=== PATIENT | male | born 1960 | race Caucasian/White ===

== ENCOUNTER 2017-06-09 08:30 | Outpatient (RCR) | payer MEDICAID, SELFPAY | END 2017-06-09 08:31 | disposition home or self-care (01) | LOC: PT 08:30 | PROVIDERS: Visit Provider Physician Assistant Medical | DX: M48.062 Spinal stenosis, lumbar region with neurogenic claudication (principal) | CPT/HCPCS: 97010; 97012; 97014; 97110; 97164; G0283 ==

== ENCOUNTER → 2017-07-08 10:13 | Outpatient (CLI) | payer MEDICAID, SELFPAY ==
--- NOTE | 2017-07-08 10:16 | US_ITS ---
US abdomen limited COMPARISON: None HISTORY: Right upper quadrant pain TECHNIQUE: Ultrasound abdomen limited FINDINGS: The pancreas is normal. The liver is normal in size and shows normal parenchymal echogenicity. The gallbladder is normal in size and there is a small amount of biliary sludge near the neck and in addition there is a nonshadowing echo attached to the gallbladder wall near the neck likely a small cholesterol polyp measuring approximately 0.5 x 0.2 cm in diameter. The common bile duct is normal caliber. Right kidney measures 11.6 x 4.7 x 7.0 cm. There are no definite cortical cysts identified. IMPRESSION: Small amount biliary sludge along with probable cholesterol polyp, no other significant abnormality noted
== END ==
PROVIDERS: PCP Nurse Practitioner Family; Visit Provider Nurse Practitioner Family
DX: R10.11 Right upper quadrant pain (principal)
CPT/HCPCS: 76705

== ENCOUNTER → 2017-07-14 11:37 | Outpatient (CLI) | payer MEDICAID, SELFPAY ==
--- NOTE | 2017-07-14 11:46 | XR_ITS ---
XR knee LT 3V HISTORY: ITS.REASON: LEFT KNEE PAIN, ORDERING PHYSICIAN: Darlyn Lowe PATIENT AGE: 57 years COMPARISON: FINDINGS: No fracture or dislocation. No lytic or blastic change. Normal mineralization. There are moderate osteoarthritic changes of the medial compartment and patellofemoral joint. Osteophytes are present involving all 3 compartments greater at the medial compartment and patellofemoral joint. IMPRESSION: Moderate osteoarthritis of the left knee
== END ==
PROVIDERS: PCP Nurse Practitioner Family; Visit Provider Nurse Practitioner Family
DX: M25.562 Pain in left knee (principal); I49.9 Cardiac arrhythmia, unspecified
CPT/HCPCS: 73562; 93225; 93226

== ENCOUNTER → 2017-08-11 09:44 | Outpatient (CLI) | payer MEDICAID, SELFPAY ==
--- NOTE | 2017-08-11 09:49 | NM_ITS ---
NM hepatobiliary w pharm HISTORY: Right upper quadrant pain with nausea, abnormal gallbladder ultrasound ITS.REASON: RUQ PAIN ORDERING PHYSICIAN: Darlyn Lowe PATIENT AGE: 57 years DOSE: 8.00 mCi technetium Choletec. Fatty meal/ensure given by mouth. No pain reported with fatty meal. COMPARISON: 07/08/2017 DOSE: 8 mCi technetium Choletec IV FINDINGS: Homogeneous activity is present within the hepatic parenchyma. Activity is present in the gallbladder by 15 minutes. Activity is present in the small bowel by 30 minutes. The gallbladder ejection fraction is calculated to be 37% which is at lower limits of normal The patient did not report pain or other symptoms during the fatty meal ingestion. IMPRESSION: Unremarkable hepatobiliary scan and gallbladder ejection fraction. No evidence of common or cystic duct obstruction with normal gallbladder ejection fraction
== END ==
PROVIDERS: PCP Nurse Practitioner Family; Visit Provider Nurse Practitioner Family
DX: R10.11 Right upper quadrant pain (principal)
CPT/HCPCS: 78227; A9537

== ENCOUNTER → 2017-08-19 11:25 | Outpatient (CLI) | payer MEDICAID, SELFPAY ==
--- NOTE | 2017-08-19 11:40 | XR_ITS ---
XR chest 2V HISTORY: ITS.REASON: CHEST PAIN ORDERING PHYSICIAN: Darlyn Lowe PATIENT AGE: 57 years COMPARISON: None FINDINGS: The cardiomediastinal silhouette and pulmonary vascularity are within normal limits. The lungs are clear without infiltrates, suspicious nodules, or pleural effusions. There are degenerative changes in the thoracic spine No acute bony abnormalities. IMPRESSION: No acute finding
== END ==
PROVIDERS: PCP Nurse Practitioner Family; Visit Provider Nurse Practitioner Family
DX: R07.9 Chest pain, unspecified (principal)
CPT/HCPCS: 71046

== ENCOUNTER → 2017-09-16 13:38 | Outpatient (CLI) | payer MEDICAID, SELFPAY | PROVIDERS: PCP Nurse Practitioner Family; Visit Provider Internal Medicine Cardiovascular Disease | DX: G47.33 Obstructive sleep apnea (adult) (pediatric) (principal); R06.83 Snoring; R40.0 Somnolence; R07.9 Chest pain, unspecified; I10 Essential (primary) hypertension | CPT/HCPCS: 95806 ==

== ENCOUNTER → 2017-09-19 06:18 | Outpatient (CLI) | payer MEDICAID, SELFPAY ==
--- NOTE | 2017-09-19 06:19 | NM_ITS ---
SPECT MYOCARDIAL PERFUSION SCAN, REST AND STRESS: EXERCISE STRESS: [facility] REVIEW QGS EF AND WALL MOTION EVALUATION: QPS - PERFUSION EVALUATION: HISTORY: SOB, Palpitations, HTN PROCEDURE: Rest imaging performed after administration of10.07 millicuries Tc MIBI. Dose administered at6:30 a.m., with imaging thereafter. Stress imaging was then performed following5 minutes 50 seconds of exercise stress. The patient achieved a heart [id number] with projected heart rate of137 . Resting BP170/103 with stress 176/90. At maximum exercise stress,30.0 millicuries Tc MIBI administered at8:20 a.m. with [id number] minutes thereafter. FINDINGS: Perfusion Evaluation: The single slice spect images as well as the [facility] bull's-eye data summary were reviewed. Wall Motion and Ejection Fraction Evaluation: Gated SPECT review and analysis used to evaluate these features. There is a 56 % left ventricular ejection fraction. There seems to be good wall motion SPECT images reveal small decreased activity in a portion the anterior and septal wall which does not change much with rest images. Gated images calculated ejection fraction of 56% with normal wall motion IMPRESSION: Small defect in the anterior wall and portion of the septal wall which does not have reversible ischemia. Normal ejection fraction wall motion. Clinical correlation is advised
--- NOTE | 2017-09-19 07:07 | HMH.ITSHM ---
BISOPROLOL LOSARTAN MELOXICAM TAMSULOSIN FANOTIDINE
== END ==
PROVIDERS: PCP Nurse Practitioner Family; Visit Provider Internal Medicine
DX: R07.89 Other chest pain (principal); R00.2 Palpitations; R06.09 Other forms of dyspnea; K21.9 Gastro-esophageal reflux disease without esophagitis; Z82.49 Family history of ischemic heart disease and other diseases of the circulatory system
CPT/HCPCS: 78452; 93017; 93306; A9502

== ENCOUNTER → 2017-09-20 10:59 | Outpatient (CLI) | payer MEDICAID, SELFPAY ==
--- NOTE | 2017-09-20 11:01 | CA_ITS ---
PROCEDURE: 2-D M-mode and color Doppler study INDICATIONS FOR THE TEST: Chest pain+ COPD Heart Murmur Tobacco Smoking Palpitations Fatigue Syncope Edema Hypertension+Diabetes Mellitus Rheumatic Fever SOB+[place] Obesity Hyperlipidemia Family History HD Additional History TACHYCARDIA PATIENT INFORMATION HEIGHT:72 WEIGHT:217 GENDER: Male B/P:169/98 2-D/M-MODE INTERPRETATION: 2-D MEASUREMENTS OBSERVED VALUES IN CMS Right Ventricular Dimension (RVDd) 2.5 Interventricular Septum (Thickness)(IVsd) 1.6 Left Ventricular Internal Dimensions(LVIDd) 5.7 Left Ventricular Posterior Wall (Thickness)(LVPWd) 0.9 Aortic Root 3.7 Aortic Cusp Separation 2.2 Left Atrial Dimensions (LAD) 4.7 2D 1. Left atrium is mildly enlarged, left ventricle is normal size, mild concentric left ventricular hypertrophy, visually estimated ejection fraction 55% with no obvious regional wall motion abnormality. 2. The right atrium and right ventricle are normal size and contractility. 3. The aortic valve is minimally thickened and fibrosed. 4. The mitral and tricuspid valvular grossly normal. 5. The pulmonic valve is poorly visualized. 6. No significant pericardial effusion noted. DOPPLER INTERROGATION: Doppler interrogation of the aortic, mitral and tricuspid valvular presence of mild mitral and tricuspid regurgitation, tricuspid and jet velocity is insufficient for calculation of the right ventricular systolic pressure, grade 1 diastolic dysfunction seen without tissue Doppler evidence of raised left atrial pressure. CONCLUSION: 1. Mildly enlarged left atrium, normal left ventricular size, mild concentric left ventricular hypertrophy, visually estimated ejection fraction 55% with no obvious regional wall motion abnormality, grade 1 diastolic dysfunction seen without tissue Doppler evidence of raised left atrial pressure. 2. Mild mitral and tricuspid addition 3. No significant pericardial effusion noted.
== END ==
PROVIDERS: PCP Nurse Practitioner Family; Visit Provider Internal Medicine
DX: R07.9 Chest pain, unspecified (principal); R06.00 Dyspnea, unspecified; R00.2 Palpitations; Z82.49 Family history of ischemic heart disease and other diseases of the circulatory system
CPT/HCPCS: 93306

== ENCOUNTER → 2017-09-22 11:29 | Outpatient (CLI) | payer MEDICAID, SELFPAY ==
[2017-09-22 13:10] LABS: Anion Gap 10.8 mEq/L (5-15); Blood Urea Nitrogen 10 mg/dL (7-18); Carbon Dioxide 31 mmol/L (21.0-32.0); Chloride 100 mmol/L (98-107); Creatinine,Serum 0.73 mg/dL (0.70-1.30); Estimated Glomerular Filt Rate 110 ml/min (>60); GFR (African American) 133 ML/MIN (>60); Glucose 93 mg/dL (74-106); Potassium 3.8 mmoL/L (3.5-5.1); Sodium 138 mmol/L (136-145)
== END ==
PROVIDERS: Visit Provider Internal Medicine Cardiovascular Disease
DX: I25.10 Atherosclerotic heart disease of native coronary artery without angina pectoris (principal); I10 Essential (primary) hypertension
CPT/HCPCS: 36415; 80048

== ENCOUNTER → 2017-11-09 09:52 | Outpatient (CLI) | payer MEDICAID, SELFPAY ==
--- NOTE | 2017-11-09 09:59 | XR_ITS ---
EXAM: XR cervical spine 5V HISTORY: Neck pain ITS.REASON: CERVICALGIA ORDERING PHYSICIAN: Darlyn Lowe PATIENT AGE: 57 years COMPARISON: None FINDINGS: Degenerative disc disease is present at C5-C6, C6-C7, and C7-T1. There is 3 mm anterolisthesis of C4 on C5. There are small anterior osteophytes. Mild foraminal narrowing is noted on the left at C3-C4 and C4-C5. No fracture or dislocation. Facet arthritic changes are present from C46. IMPRESSION: Cervical spondylosis as described above with degenerative disc disease and facet arthritic change.
== END ==
PROVIDERS: PCP Family Medicine; Visit Provider Nurse Practitioner Family
DX: M54.2 Cervicalgia (principal)
CPT/HCPCS: 72050

== ENCOUNTER → 2017-12-16 07:37 | Outpatient (CLI) | payer MEDICAID, SELFPAY ==
--- NOTE | 2017-12-16 07:40 | CT_ITS ---
CT CERVICAL SPINE WITHOUT CONTRAST CT RECONSTRUCTIONS HISTORY:Neck pain, osteoarthritis with myelopathy, cervicalgia ORDERING PHYSICIAN: Darlyn Lowe PATIENT AGE: 57 years COMPARISON: None Technique: All CT scans at the facility use one or more dose reduction, viz: automated exposure control, ma/kV adjustment per patient size (including targeted exams where dose is matched to indication, i.e. head), or iterative reconstruction technique PROCEDURE: Axial spiral CT scanning performed of the cervical spine beginning at the base of the skull and continuing to the upper T-spine. 3-D multiplanar reconstruction with 3-D manipulation of volumetric data set in image rendering was completed by the radiologist and/or technologist with the supervision of the radiologist on independent workstation. FINDINGS: No acute fracture or dislocation. No bony destructive process evident. There is multilevel cervical spondylosis with degenerative disc disease and facet and uncovertebral arthropathy as described below. C2-C3: Mild right lateral recess narrowing from uncovertebral hypertrophy. C3-C4: Degenerative disc disease with mild left-sided foraminal narrowing. C4-C5: Degenerative disc disease. 3 mm anterolisthesis of C4. Severe left-sided facet hypertrophic change with uncovertebral hypertrophy and moderate to severe left-sided foraminal narrowing C5-C6: Degenerative disc disease with minimal bulging disc. C6-C7: Degenerative disc disease with small left paracentral disc osteophyte complex and left lateral recess and foraminal narrowing. C7-T1: Unremarkable. There is a small sclerotic focus involving the right T2 vertebral body inferiorly and may be due to a bone island. IMPRESSION: Multilevel cervical spondylosis as detailed above with lateral recess and foraminal narrowing. Please see above for detailed description at each level
== END ==
PROVIDERS: PCP Family Medicine; Visit Provider Nurse Practitioner Family
DX: M54.2 Cervicalgia (principal); M47.12 Other spondylosis with myelopathy, cervical region
CPT/HCPCS: 72125

== ENCOUNTER → 2018-03-01 13:55 | Outpatient (CLI) | payer MEDICAID, SELFPAY ==
--- NOTE | 2018-03-01 14:03 | CT_ITS ---
CT abdomen pelvis w con CLINICAL INDICATION: ITS.REASON: VOMITING,RLQ PAIN,LEUKOCYTOSIS ORDERING PHYSICIAN: Darlyn Lowe PATIENT AGE: 58 years COMPARISON: None TECHNIQUE: Axial images obtained with sagittal and coronal reformats. All CT scans at the facility use one or more dose reduction, viz: automated exposure control, ma/kV adjustment per patient size (including targeted exams where dose is matched to indication, i.e. head), or iterative reconstruction technique. PROCEDURE: Oral Contrast: None IV Contrast: 75 mL's of Isovue 370. FINDINGS: Atelectatic changes are present in the right lower lobe posteriorly 1 similar isodense involving the central aspect of the liver may be due to a cyst. Spleen, gallbladder, adrenal glands, and pancreas have an unremarkable appearance. There is mild stranding in the perinephric fat on both sides. There are left renal cyst measuring up to 2.9 cm and small right renal cyst. No hydronephrosis evident. There is a minimal amount of fluid in the perinephric region on both sides. There is extensive irregular thickening of the appendix with several appendicoliths at the base of the appendix. There is appears to be a small amount of extra appendiceal gas. Extensive stranding of the periappendiceal fat is noted. There is also thickening of the small bowel in the right lower quadrant and thickening of the cecum adjacent to the severe appendicitis. No obvious abscess. Fluid-filled small bowel loops are present proximal to the area of inflammation. There is a small focal hernia containing gas. Small amount fluid is present in the pelvis. There has been a prior laminectomy at L4 and L5 with postsurgical changes in the lumbar spine.. There is a fracture of the spinous process of L3 which is nondisplaced. IMPRESSION: The findings are consistent with severe appendicitis with appendicoliths. The appendix has an irregular appearance with thickened wall with moderate to severe stranding of the para appendiceal fat and there is a small amount of extra appendiceal gas consistent with either ruptured or gangrenous appendicitis. No obvious abscess. There is a local ileus. Critical result called to Anne on 03/01/2018 3:50 PM.
[2018-03-01 14:57] LABS: Blood Urea Nitrogen 8 mg/dL (7-18); Creatinine,Serum 0.95 mg/dL (0.70-1.30); Estimated Glomerular Filt Rate 81 ml/min (>60); GFR (African American) 98 ML/MIN (>60)
== END ==
PROVIDERS: PCP Nurse Practitioner Family; Visit Provider Nurse Practitioner Family
DX: K35.80 Unspecified acute appendicitis (principal)
CPT/HCPCS: 36415; 74177; 82565; 84520; 88304; Q9967

== ENCOUNTER 2018-03-01 16:12 | Inpatient (IN) ==
[2018-03-01 16:30] LABS: Basophils % 0.2 % (0.1-2.0); Eosinophils % 0.1 % (0.1-12.0); Hematocrit 41.9 % (42.0-52.0); Hemoglobin 13.9 g/dL (14.1-18.0); Lymphocytes # 1.1 K/mm3 (0.7-4.5); Lymphocytes % 7.6 % (10-50); Mean Corpuscular HGB Conc 33.2 g/dL (31.8-35.4); Mean Corpuscular Hemoglobin 28.4 pg (27.0-31.2); Mean Corpuscular Volume 85.5 fl (80-94); Mean Platelet Volume 6.7 fl (7.4-10.4); Monocytes # 0.8 K/mm3 (0.1-1.0); Monocytes % 5.6 % (1.7-9.3); Neutrophils # 12.4 K/mm3 (1.8-7.8); Neutrophils % 86.5 % (37.0-80.0); Platelet Count 251 K/mm3 (142-424); Red Cell Distribution Width 13.2 % (11.5-17.5); White Blood Count 14.3 K/mm3 (4.8-10.8)
[2018-03-01 16:38] LABS: Albumin Level 3.3 gm/dL (3.4-5.0); Albumin/Globulin Ratio 0.9 (1.1-1.8); Anion Gap 12.2 mEq/L (5-15); Bilirubin,Total 1.5 mg/dL (0.2-1.0); Calcium 9.2 mg/dL (8.5-10.1); Globulin 3.6 gm/dl (1.3-3.2); Potassium 3.2 mmoL/L (3.5-5.1); Total Protein,Serum 6.9 gm/dL (6.4-8.2)
--- NOTE | 2018-03-01 17:03 | Emergency Department Note ---
ED Disposition Clinical Impression: Acute appendicitis Disposition: Admitted As Inpatient Condition on Discharge: Serious Instructions: DI for Acute Abdomen Referrals: Darlyn Lowe APRN [Primary Care Provider] - - Critical Care Critical Care Time: Yes Attestation: On 03/01/18, the high probability of a clinically significant, sudden or life threatening deterioration of the following system(s) required my full and direct attention, intervention and personal management. The time I documented below is in addition to time spent performing reported procedures but includes the following listed in this critical care notation. Vital system(s) involved:: Circulatory Failure, Metabolic Failure, Shock (Hemorrhage) My critical care processes included: Assessment & monitoring of V/S, Initial and Re-exams, Data Review/Interpretation, Coordinating Care, Medication Orders and management Medical Decision Making - Medical Records Medical records reviewed: Yes: I reviewed the patient's medical records. MR Comment: Discussed case with Dr. Benson. Patient taken to OR form ED. Patient remained stable during his ED care. - Ant Inquiry Pt receiving controlled substance: Yes Ant was queried for this patient: No Reason not queried -: Emergent pt cond-no time Risks and benefits of using a controlled substance: were discussed with pt by me Vital Signs: 03/01/18 16:26 Temperature 98.7 F Temperature Source Oral Pulse Rate [Left Radial] 97 H Respiratory Rate 18 Blood Pressure [Right Arm] 139/82 Blood Pressure Mean [Right Arm] 101 Blood Pressure Source [Right Arm] Automatic Cuff 02 Sat by Pulse Oximetry 95 Oxygen Delivery Method Room Air - Lab Data Lab results reviewed: Yes: I reviewed the patient's lab results. Lab Results 03/01/18 14:41: WBC 14.3 H, RBC 4.90, Hgb 13.9 L, Hct 41.9 L, MCV 85.5, MCH 28.4, MCHC 33.2, RDW 13.2, Plt Count 251, MPV 6.7 L, Neut % (Auto) 86.5 H, Lymph % (Auto) 7.6 L, [place] % (Auto) 5.6, Eos % (Auto) 0.1, Baso % (Auto) 0.2, Neut # (Auto) 12.4 H, Lymph # (Auto) 1.1, [place] # (Auto) 0.8, Eos # (Auto) 0.0, Baso # (Auto) 0.0 03/01/18 14:41: Sodium 127 L, Potassium 3.2 L, Chloride 86 L, Carbon Dioxide 32, Anion Gap 12.2, BUN 9, Creatinine 0.96, Estimated Creat Clear 115, Estimated GFR 80, Est GFR ( Amer) 97, Glucose 136 H, Calcium 9.2, Total Bilirubin 1.5 H , AST 20, ALT 31, Alkaline Phosphatase 65, Total Protein 6.9, Albumin 3.3 L, Globulin 3.6 H, Albumin/Globulin Ratio 0.9 L Result diagrams: 03/01/18 14:41 03/01/18 14:41 Orders (Tests/Meds): ED MEDICATIONS Discontinued Medications Generic Name Dose Route Start Last Admin Trade Name Freq PRN Reason Stop Dose Admin Piperacillin Sod/Tazobactam 50 mls @ 100 mls/hr 03/01/18 16:57 Sod 3.375 gm/ Sodium Chloride IV 03/01/18 16:58 ONCE ONE Protocol ORDERS Category Date Time Status Complete Blood Count Auto Diff Stat Lab 03/01/18 14:41 Results ECG Request by /Nse Stat Y 03/01/18 16:22 Ordered - CT Data CT Scan: Abdomen Time Received: 16:03 Preliminary Findings: Abnormal Findings Narrative: Acute appendicitis. Abdominal Pain HPI - General Chief Complaint: Abdominal Pain Stated Complaint: stomach Time Seen by Provider: 03/01/18 16:26 Mode of Arrival: Ambulatory Limitations: No Limitations Description of Symptoms (Recalled from ER Triage Doc. by RN): Pt was sent over from his PCP after a CT scan for appendicitis. - History of Present Illness HPI narrative: Patient sent down to ED after being seen by PCP, CT abdomen showing Acute appendicitis. Patient reports RLQ abdominal pain since yesterday. Denies fever, chills, nausea, vomiting, diarrhea, constipation. Denies any other associate complains at this time. MD complaint: abdominal pain Onset (ago): day(s) (1) Consistency: constant Location: RLQ Severity: moderate Radiation: none Migration to: no migration Relieving factors: nothing Exacerbating factors: nothing Associated symptoms: denies other symptoms - Related Data Home Medications Medication Instructions Recorded Confirmed omeprazole 20 mg capsule,delayed 20 mg PO DAILY cap 08/25/17 03/01/18 release tamsulosin 0.4 mg capsule 0.4 mg PO DAILY cap 08/25/17 03/01/18 Bisoprolol Fumarate [Bisoprolol 10 mg PO DAILY 03/01/18 03/01/18 10mg Tablet] Famotidine [[employer]] 20 mg PO QHS 03/01/18 03/01/18 Losartan/Hydrochlorothiazide 1 tab PO DAILY 03/01/18 03/01/18 [Hyzaar 100-12.5 Tablet] Allergies Allergy/AdvReac Type Severity Reaction Status Date / Time No Known Allergies Allergy Verified 10/13/17 09:35 [facility] History I have reviewed the patient's past medical history: Yes Medical History: Reports:: Gastroesophageal Reflux Disease(GERD), Hypertension Denies:: Diabetes Mellitus Type 1, Diabetes Mellitus Type 2, Seizures Other Surgeries: Yes: Hernia Repair, Other (Back Sx) Amputation: No Fractures: No - Social History Smoking Status: Former smoker Tobacco Type: cigarettes Alcohol Intake: never Substance Use Type: denies use - Psychiatric History Expresses thoughts of harming self/others: None Suicide Plan Description: No Plan Family Hx:: Coronary Artery Disease ROS Obtained: Yes All systems reviewed & no additional complaints Physical Exam - General General appearance: alert, in no apparent distress - Head Head exam: atraumatic, normocephalic, normal inspection - Eye Eye exam: Present: normal appearance, PERRL, EOMI - ENT ENT exam: Present: normal exam, normal oropharynx, mucous membranes moist, TM's normal bilaterally, normal external ear exam - Neck Neck exam: Present: normal inspection, full ROM, trachea midline. Absent: meni ngismus, lymphadenopathy - Chest Chest inspection: Present: normal inspection, symmetric chest wall rise. Absent: tenderness - Respiratory Respiratory exam: Present: normal lung sounds bilaterally. Absent: respiratory distress - Cardiovascular Cardiovascular exam: Present: regular rate, normal rhythm. Absent: JVD - Abdominal Exam Abdominal exam: Present: soft, tenderness (Moderate tenderness to palpation over RLQ area. No rebound or guarding. No palpable organometaly. ), normal bowel sounds. Absent: distention, guarding - Extremities Exam Extremities exam: Present: normal inspection, full ROM, normal capillary refill. Absent: calf tenderness - Back Exam Back exam: Present: normal inspection. Absent: tenderness - Neurological Exam Neurological exam: Present: alert, oriented X3 - Psychiatric Psychiatric exam: Present: normal affect, normal mood - Skin Skin exam: Present: warm, dry, intact, normal color - Lymphatic Lymphatic Findings: no adenopathy
[2018-03-01 17:04] LABS: Lymphocytes % 6 % (10-50); Monocytes % 6 % (2-9); Neutrophils % 86 % (42-76); Total Cells Counted 100
[2018-03-01 17:05] LABS: RBC Morphology Normal
--- NOTE | 2018-03-01 20:38 | Progress Note ---
[facility] Anesthesia Checklist - Patient Identification Patient Identification: Arm Band - Structural Data Admitted From: Emergency Dept Planned Operative Procedure/s: laparoscopic appendectomy Consent for Planned Operative Procedure(s) Verified: Yes Verified Documents: Surgical Consent, History and Physical - NPO Status Verified Time NPO: 00:00 - Additional verifications Anesthesia Reactions: No - Airway Assessment C-Spine Mobility Assessed: Yes (mp2) TMJ Mobility Assessed: Yes Dentition: Good Dentition - Neurological Assessment Level of Consciousness: Awake, Alert - Anesthesia Plan Anesthesia Risk discussed: Yes Anesthesia Plan: Verified ASA Class: II (e) Anesthesia Type: General [facility] History I have reviewed the patient's past medical history: Yes Medical History: Reports:: Gastroesophageal Reflux Disease(GERD), Hypertension Denies:: Diabetes Mellitus Type 1, Diabetes Mellitus Type 2, Seizures Other Surgeries: Yes: Hernia Repair, Other (Back Sx) Amputation: No Fractures: No - *Social History Smoking Status: Former smoker Tobacco Type: cigarettes Alcohol Intake: never Substance Use Type: denies use - Psychiatric History Expresses thoughts of harming self/others: None Suicide Plan Description: No Plan *Family Hx:: Coronary Artery Disease
--- NOTE | 2018-03-01 20:38 | Progress Note ---
[facility] Anesthesia Record Part I Intake, IV Amount: 1,200 Estimated blood loss (mL): 10 Urine output (mL): 300 Blood Pressure: 134/78 SaO2: 92 Pulse Rate: 84 Respiratory Rate: 16 Temperature: 97.6 F Patient is:: Drowsy, Stable Stable to PACU at:: 20:30
--- NOTE | 2018-03-01 20:39 | Progress Note ---
[facility] Anesthesia Record Part II Discharge Time: 21:00 Destination: 2nd floor PACU nurse assessment reviewed?: Yes Patient Condition:: Good Anesthesia Complications:: None
--- NOTE | 2018-03-01 20:44 | Operative Note ---
Date of procedure: 03/01/18 Pre-op Diagnosis:: Appendicitis Post-op Diagnosis:: Necrotic/perforated appendicitis Procedure performed:: Laparoscopic appendectomy Surgeon:: Len Benson MD TUB WASH OPERATOR:: Octaviano Muhammad Anesthesia: CAPO Estimated blood loss (mL): 15 Operative findings:: Necrotic/perforated appendicitis with severe inflammation of surrounding small bowel and colon Operative note:: After informed consent was obtained the patient was taken to the operating room and placed in the supine position. General anesthesia was induced and his abdomen was prepped and draped in a sterile fashion. After infiltration with local anesthetic a Veress needle was placed through an infraumbilical incision. The abdomen was insufflated. A 12 mm optical trocar was placed in position. Under direct visualization a 5 mm trocar was placed in the suprapubic position. An additional 5 mm trocar was placed in the left lower quadrant. Evaluation of the right lower quadrant revealed severe inflammation of small bowel and colon. Careful blunt dissection was utilized to find the appendix which was most easily accessed at its base. A window was made in the base as the appendix was carefully elevated. The base was transected with the Endo BAKARI. The appendix was essentially "stuck" to the underlying tissue and elevation was very difficult. A combination of blunt dissection and harmonic teodoro was utilized to free the appendix from surrounding tissue/mesoappendix. The appendix was necrotic and obviously perforated with feculent material noted in the periappendiceal region. The majority of the feculent material and the appendix was placed in a retrieval bag. The appendix was removed through the infraumbilical trocar site. The entire region and right lower quadrant was thoroughly irrigated with 3 L of normal saline. No obvious abscess collection noted. No sign of injury noted. Fascia at the infraumbilical trocar site was reapproximated with 0 Ethibond. Skin was then closed with 4-0 Monocryl in a subcuticular fashion. Steri-Strips were applied. The patient's anesthetic agents were reversed and he was extubated prior to transfer to recovery. Condition: stable Disposition: PACU Specimens:: Appendix Complications:: No immediate
--- NOTE | 2018-03-02 06:42 | Progress Note ---
Subjective Patient reports: no new complaints, no flatus Exam Vital signs and Labs for Last 24 Hours: Temp Pulse Resp BP Pulse Ox 99.7 F H 87 16 135/87 94 L 03/02/18 03:00 03/02/18 03:00 03/02/18 03:00 03/02/18 03:00 03/02/18 03:00 Laboratory Results - last 24 hr 03/01/18 14:41: WBC 14.3 H, RBC 4.90, Hgb 13.9 L, Hct 41.9 L, MCV 85.5, MCH 28.4, MCHC 33.2, RDW 13.2, Plt Count 251, MPV 6.7 L, Neut % (Auto) 86.5 H, Lymph % (Auto) 7.6 L, [place] % (Auto) 5.6, Eos % (Auto) 0.1, Baso % (Auto) 0.2, Neut # (Auto) 12.4 H, Lymph # (Auto) 1.1, [place] # (Auto) 0.8, Eos # (Auto) 0.0, Baso # (Auto) 0.0, Total Counted 100, Neutrophils % (Manual) 86 H, Band Neutrophils % 2.0, Lymphocytes % (Manual) 6 L, Monocytes % (Manual) 6, Platelet Estimate Normal, RBC Morphology Normal 03/01/18 14:41: Sodium 127 L, Potassium 3.2 L, Chloride 86 L, Carbon Dioxide 32, Anion Gap 12.2, BUN 9, Creatinine 0.96, Estimated Creat Clear 115, Estimated GFR 80, Est GFR ( Amer) 97, Glucose 136 H, Calcium 9.2, Total Bilirubin 1.5 H , AST 20, ALT 31, Alkaline Phosphatase 65, Total Protein 6.9, Albumin 3.3 L, Globulin 3.6 H, Albumin/Globulin Ratio 0.9 L 03/01/18 18:53: Urine Color Yellow, Urine Appearance Clear, Urine pH 8.0, Ur Specific [place] <= 1.005, Urine Protein 1+, Urine Glucose (UA) Negative, Urine Ketones Negative, Urine Blood 3+, Urine Nitrate Negative, Urine Bilirubin Negative, Urine Urobilinogen 1.0, Ur Leukocyte Esterase Negative, Urine RBC 10- 20, Urine WBC Occasional, Ur Squamous Epith Cells None, Urine Bacteria None I & O for Last 24 hours: Intake & Output 02/27/18 02/28/18 03/01/18 03/02/18 11:59 11:59 11:59 11:59 Intake Total 1225 / 1225 Output Total 315 / 315 Balance 910 / 910 Weight 223 lb 8.991 oz - Constitutional no acute distress - *Routine Respiratory Exam Absent: respiratory distress - *Routine Abdominal Exam Present: soft Comments: dressings intact Progress Note: A&P (1) Perforated appendicitis Status: Acute Assessment and plan: Stable status post laparoscopic appendectomy Clear liquids cautiously Follow-up pending labs Remove Guerrero catheter Current Visit: Yes (2) Hypokalemia Status: Acute Assessment and plan: Follow-up morning labs Current Visit: Yes (3) Hyponatremia Status: Acute Assessment and plan: Continue IV fluids and follow-up morning labs Current Visit: Yes
[2018-03-02 06:43] LABS: Calcium 8.3 mg/dL (8.5-10.1)
[2018-03-02 06:44] LABS: Basophils % 0.1 % (0.1-2.0); Eosinophils % 0.1 % (0.1-12.0); Hematocrit 35.4 % (42.0-52.0); Lymphocytes # 0.5 K/mm3 (0.7-4.5); Lymphocytes % 5.1 % (10-50); Mean Corpuscular HGB Conc 32.8 g/dL (31.8-35.4); Mean Corpuscular Hemoglobin 27.9 pg (27.0-31.2); Mean Corpuscular Volume 85.2 fl (80-94); Mean Platelet Volume 6.8 fl (7.4-10.4); Monocytes # 0.4 K/mm3 (0.1-1.0); Neutrophils # 8.1 K/mm3 (1.8-7.8); Neutrophils % 90.7 % (37.0-80.0); Platelet Count 193 K/mm3 (142-424); Red Blood Count 4.15 M/mm3 (4.60-6.20); Red Cell Distribution Width 13.1 % (11.5-17.5)
[2018-03-02 07:25] LABS: Hemoglobin 11.7 g/dL (14.1-18.0)
--- NOTE | 2018-03-02 07:31 | Pharmacy Consult Notes ---
[facility] Pharmacy VTE Monitoring - Patient Demographics Admission date: 03/01/18 Report Date: 03/02/18 Time: 07:31 Allergies/Adverse Reactions: Patient Allergies No Known Allergies Allergy (Verified 10/13/17 09:35) Height: 1.83 m Weight: 101.406 kg Patient Problems: Current Active Problems Acute appendicitis (Acute) Perforated appendicitis (Acute) Hypokalemia (Acute) Hyponatremia (Acute) - VTE Risk Labs: VTE Related Lab Results Hgb 11.7 g/dL (14.1-18.0) L D 03/02/18 06:18 Hct 35.4 % (42.0-52.0) L 03/02/18 06:18 Plt Count 193 K/mm3 (142-424) 03/02/18 06:18 BUN 11 mg/dL (7-18) 03/02/18 06:18 Creatinine 0.96 mg/dL (0.70-1.30) 03/02/18 06:18 Estimated Creat Clear 117 mL/min (50-200) 03/02/18 06:18 Was VTE Risk Assessment Performed: Yes VTE Score: 6 VTE Risk Level: Moderate Risk - Prophylaxis VTE Prophylaxis Ordered?: Yes Types of VTE Prophylaxis: IPCS Thigh High Location of Applied Device: Bilateral Lower Extremeties - VTE Diagnosis Confirmed Treatment or plan recommended: Continue Current Treatment
[2018-03-02 10:41] LABS: Lymphocytes % 12 % (10-50); Monocytes % 2 % (2-9); Neutrophils % 83 % (42-76); Total Cells Counted 100
[2018-03-02 10:42] LABS: RBC Morphology Normal
--- NOTE | 2018-03-03 06:03 | Progress Note ---
Subjective Patient reports: bowel movement, other (increased reflux/epigastric pain) Exam Vital signs and Labs for Last 24 Hours: Temp Pulse Resp BP Pulse Ox 98.2 F 88 18 130/98 H 95 03/03/18 04:00 03/03/18 04:00 03/03/18 04:00 03/03/18 05:32 03/03/18 04:00 Laboratory Results - last 24 hr 03/02/18 06:18: WBC 9.0 D, RBC 4.15 L, Hgb 11.7 L D, Hct 35.4 L, MCV 85.2, MCH 27.9, MCHC 32.8, RDW 13.1, Plt Count 193, MPV 6.8 L, Neut % (Auto) 90.7 H, Lymph % (Auto) 5.1 L, [place] % (Auto) 4.0, Eos % (Auto) 0.1, Baso % (Auto) 0.1, Neut # (Auto) 8.1 H, Lymph # (Auto) 0.5 L, [place] # (Auto) 0.4, Eos # (Auto) 0.0, Baso # (Auto) 0.0, Total Counted 100, Neutrophils % (Manual) 83 H, Band Neutrophils % 2.0, Lymphocytes % (Manual) 12, Monocytes % (Manual) 2, Metamyelocytes % 1.0, Platelet Estimate Normal, RBC Morphology Normal 03/02/18 06:18: Sodium 131 L, Potassium 3.0 L, Chloride 93 L, Carbon Dioxide 28, Anion Gap 13.0, BUN 11, Creatinine 0.96, Estimated Creat Clear 117, Estimated GFR 80, Est GFR ( Amer) 97, Glucose 156 H, Calcium 8.3 L I & O for Last 24 hours: Intake & Output 02/28/18 03/01/18 03/02/18 03/03/18 11:59 11:59 11:59 11:59 Intake Total 3923 / 3923 4603 / 4603 Output Total 1115 / 1115 1700 / 1700 Balance 2808 / 2808 2903 / 2903 Weight 223 lb 8.991 oz - Constitutional no acute distress - *Routine Respiratory Exam Absent: respiratory distress - *Routine Cardiovascular Exam Present: RRR - *Routine Abdominal Exam Present: soft Progress Note: A&P (1) Perforated appendicitis Status: Acute Assessment and plan: stable POD2 s/p lap appy continue abx Current Visit: Yes (2) Hypokalemia Status: Acute Current Visit: Yes (3) Hyponatremia Status: Acute Current Visit: Yes (4) GERD (gastroesophageal reflux disease) Status: Acute Assessment and plan: GI cocktail Begin H2 delaney Continue PPI (convert to p.o.) Current Visit: Yes
[2018-03-03 06:56] LABS: Basophils % 0.1 % (0.1-2.0); Eosinophils % 0.1 % (0.1-12.0); Hematocrit 43.8 % (42.0-52.0); Hemoglobin 14.1 g/dL (14.1-18.0); Lymphocytes # 0.8 K/mm3 (0.7-4.5); Lymphocytes % 9.2 % (10-50); Mean Corpuscular HGB Conc 32.2 g/dL (31.8-35.4); Mean Corpuscular Hemoglobin 28.2 pg (27.0-31.2); Mean Corpuscular Volume 87.6 fl (80-94); Mean Platelet Volume 6.6 fl (7.4-10.4); Monocytes # 0.6 K/mm3 (0.1-1.0); Monocytes % 6.6 % (1.7-9.3); Neutrophils # 7.4 K/mm3 (1.8-7.8); Platelet Count 296 K/mm3 (142-424); Red Blood Count 5.01 M/mm3 (4.60-6.20); Red Cell Distribution Width 13.2 % (11.5-17.5); White Blood Count 8.8 K/mm3 (4.8-10.8)
[2018-03-03 07:02] LABS: Calcium 8.4 mg/dL (8.5-10.1)
--- NOTE | 2018-03-04 09:40 | Progress Note ---
Subjective Patient reports: feels better Narrative: Patient states that he feels well. His reflux symptoms are improved. He has not had any nausea. He however is not passing any flatus and feels a bit bloated. He is on a full liquid diet. Exam Vital signs and Labs for Last 24 Hours: Temp Pulse Resp BP Pulse Ox 98.2 F 84 17 135/93 H 95 03/04/18 07:26 03/04/18 07:26 03/04/18 07:26 03/04/18 07:26 03/04/18 07:57 I & O for Last 24 hours: Intake & Output 03/01/18 03/02/18 03/03/18 03/04/18 11:59 11:59 11:59 11:59 Intake Total 3923 / 3923 4843 / 4843 1581 / 1581 Output Total 1115 / 1115 2100 / 2100 700 / 700 Balance 2808 / 2808 2743 / 2743 881 / 881 Weight 223 lb 8.991 oz - *Routine HEENT Exam Head: Present: normocephalic Eye: Present: EOMI, PERRL ENT: Present: mucous membranes moist - *Routine Neck Exam Present: supple. Absent: lymphadenopathy - *Routine Respiratory Exam Present: CTA bilaterally - *Routine Cardiovascular Exam Present: RRR - *Routine Abdominal Exam Present: distended. Absent: tenderness - *Routine Extremities Exam Absent: cyanosis, clubbing, edema - *Routine Skin Exam Present: warm. Absent: rash - *Routine Neurological Exam Present: alert, oriented X3 - Detailed Eye Exam Eyelids: Left normal inspection Progress Note: A&P (1) Perforated appendicitis Status: Acute Current Visit: Yes (2) Hypokalemia Status: Acute Current Visit: Yes (3) Hyponatremia Status: Acute Current Visit: Yes (4) GERD (gastroesophageal reflux disease) Status: Acute Current Visit: Yes Assessment and Plan for All Diagnoses:: Patient seems to have a bit of an ileus characterized by abdominal distention and lack of flatus. Continue to limit to full liquid diet at this time. Encourage ambulation and chewing gum. Plan to recheck blood work tomorrow to assess his electrolytes.
[2018-03-05 07:20] LABS: Basophils % 0.3 % (0.1-2.0); Eosinophils # 0.1 K/mm3 (0.0-0.4); Eosinophils % 1.5 % (0.1-12.0); Hematocrit 37.7 % (42.0-52.0); Hemoglobin 12.2 g/dL (14.1-18.0); Lymphocytes # 1.1 K/mm3 (0.7-4.5); Lymphocytes % 12.9 % (10-50); Mean Corpuscular HGB Conc 32.3 g/dL (31.8-35.4); Mean Corpuscular Hemoglobin 28.1 pg (27.0-31.2); Mean Corpuscular Volume 87.1 fl (80-94); Mean Platelet Volume 6.3 fl (7.4-10.4); Monocytes # 0.7 K/mm3 (0.1-1.0); Monocytes % 7.7 % (1.7-9.3); Neutrophils # 6.6 K/mm3 (1.8-7.8); Neutrophils % 77.6 % (37.0-80.0); Platelet Count 350 K/mm3 (142-424); Red Blood Count 4.33 M/mm3 (4.60-6.20); Red Cell Distribution Width 13.3 % (11.5-17.5); White Blood Count 8.5 K/mm3 (4.8-10.8)
[2018-03-05 07:28] LABS: Anion Gap 10.4 mEq/L (5-15); Calcium 8.4 mg/dL (8.5-10.1); Potassium 3.4 mmoL/L (3.5-5.1)
--- NOTE | 2018-03-05 09:50 | Progress Note ---
Internal Medicine - PN: Subj *Date: 03/05/18 *Time: 09:49 Exam Vital signs and Labs for Last 24 Hours: Temp Pulse Resp BP Pulse Ox 99.0 F 78 17 139/88 91 L 03/05/18 07:22 03/05/18 07:22 03/05/18 07:22 03/05/18 07:22 03/05/18 08:27 Laboratory Results - last 24 hr 03/05/18 06:59: WBC 8.5, RBC 4.33 L, Hgb 12.2 L, Hct 37.7 L, MCV 87.1, MCH 28.1, MCHC 32.3, RDW 13.3, Plt Count 350, MPV 6.3 L, Neut % (Auto) 77.6, Lymph % (Auto) 12.9, [place] % (Auto) 7.7, Eos % (Auto) 1.5, Baso % (Auto) 0.3, Neut # (Auto) 6.6, Lymph # (Auto) 1.1, [place] # (Auto) 0.7, Eos # (Auto) 0.1, Baso # (Auto) 0.0 03/05/18 06:59: Sodium 136, Potassium 3.4 L, Chloride 101, Carbon Dioxide 28, Anion Gap 10.4, BUN 10, Creatinine 0.72, Estimated Creat Clear 156, Estimated GFR 111, Est GFR ( Amer) 135, Glucose 117 H, Calcium 8.4 L I & O for Last 24 hours: Intake & Output 03/02/18 03/03/18 03/04/18 03/05/18 23:59 23:59 23:59 23:59 Intake Total 4468 / 4468 3673 / 3673 1461 / 1461 1640 / 1640 Output Total 2100 / 2100 1200 / 1200 600 / 600 300 / 300 Balance 2368 / 2368 2473 / 2473 861 / 861 1340 / 1340 Weight 101.406 kg Assessment and Plan (1) Perforated appendicitis Current visit: Yes Status: Acute Category: Medical Code(s): K35.32 - Acute appendicitis with perforation and localized peritonitis, without abscess (2) Hypokalemia Current visit: Yes Status: Acute Category: Medical Code(s): E87.6 - Hypokalemia (3) Hyponatremia Current visit: Yes Status: Acute Category: Medical Code(s): E87.1 - Hypo- osmolality and hyponatremia (4) GERD (gastroesophageal reflux disease) Current visit: Yes Status: Acute Category: Medical Code(s): K21.9 - Gastro-esophageal reflux disease without esophagitis The patient's infection will respond to the chosen ABx?: Yes Is the patient receiving the right drug, dose, and route?: Yes Could a more targeted ABx be ordered?: No (WBC IMPROVING)
--- NOTE | 2018-03-05 10:16 | Progress Note ---
Subjective Narrative: Patient had episodes of significant bilious vomiting last night. Now feels a bit better. Started passing multiple loose stools. His diet was changed back to clear liquids last night. Exam Vital signs and Labs for Last 24 Hours: Temp Pulse Resp BP Pulse Ox 99.0 F 78 17 139/88 91 L 03/05/18 07:22 03/05/18 07:22 03/05/18 07:22 03/05/18 07:22 03/05/18 08:27 Laboratory Results - last 24 hr 03/05/18 06:59: WBC 8.5, RBC 4.33 L, Hgb 12.2 L, Hct 37.7 L, MCV 87.1, MCH 28.1, MCHC 32.3, RDW 13.3, Plt Count 350, MPV 6.3 L, Neut % (Auto) 77.6, Lymph % (Auto) 12.9, [place] % (Auto) 7.7, Eos % (Auto) 1.5, Baso % (Auto) 0.3, Neut # (Auto) 6.6, Lymph # (Auto) 1.1, [place] # (Auto) 0.7, Eos # (Auto) 0.1, Baso # (Auto) 0.0 03/05/18 06:59: Sodium 136, Potassium 3.4 L, Chloride 101, Carbon Dioxide 28, Anion Gap 10.4, BUN 10, Creatinine 0.72, Estimated Creat Clear 156, Estimated GFR 111, Est GFR ( Amer) 135, Glucose 117 H, Calcium 8.4 L I & O for Last 24 hours: Intake & Output 03/02/18 03/03/18 03/04/18 03/05/18 11:59 11:59 11:59 11:59 Intake Total 3923 / 3923 4843 / 4843 1581 / 1581 2120 / 2120 Output Total 1115 / 1115 2100 / 2100 700 / 700 600 / 600 Balance 2808 / 2808 2743 / 2743 881 / 881 1520 / 1520 Weight 223 lb 8.991 oz - *Routine Abdominal Exam Present: distended Comments: Somewhat hyperactive bowel sounds. Progress Note: A&P (1) Perforated appendicitis Status: Acute Current Visit: Yes (2) Hypokalemia Status: Acute Current Visit: Yes (3) Hyponatremia Status: Acute Current Visit: Yes (4) GERD (gastroesophageal reflux disease) Status: Acute Current Visit: Yes Assessment and Plan for All Diagnoses:: Ileus seems to be slowly resolving. Passing liquid bowel movements now. No vomiting this morning. Will try once again to advance to full liquid diet.
--- NOTE | 2018-03-06 08:34 | Progress Note ---
Subjective Patient reports: feels better, flatus (still having "a few loose stools"), other (no nausea or emesis) Exam Vital signs and Labs for Last 24 Hours: Temp Pulse Resp BP Pulse Ox 97.9 F 80 16 156/69 H 94 L 03/06/18 07:47 03/06/18 07:47 03/06/18 07:47 03/06/18 07:47 03/06/18 07:47 I & O for Last 24 hours: Intake & Output 03/03/18 03/04/18 03/05/18 03/06/18 11:59 11:59 11:59 11:59 Intake Total 4843 / 4843 1581 / 1581 2120 / 2120 1285 / 1285 Output Total 2100 / 2100 700 / 700 600 / 600 300 / 300 Balance 2743 / 2743 881 / 881 1520 / 1520 985 / 985 Microbiology Reports for the Last 24 Hours: diarrhea panel negative - Constitutional no acute distress - *Routine Respiratory Exam Absent: respiratory distress - *Routine Abdominal Exam Present: soft Comments: mild to moderate distention Progress Note: A&P (1) Perforated appendicitis Status: Acute Assessment and plan: stable s/p lap appy post-op ileus resolving post-op diarrhea (panel negative) slightly improving DC home today with very close follow-up Current Visit: Yes (2) Hypokalemia Status: Acute Current Visit: Yes (3) Hyponatremia Status: Acute Current Visit: Yes (4) GERD (gastroesophageal reflux disease) Status: Acute Current Visit: Yes
--- NOTE | 2018-03-06 08:38 | Discharge Summary ---
General - General Admission date:: 03/01/18 Discharge date: 03/06/18 HPI HPI: This is a 58-year-old gentleman who presented with a 3-day history of abdominal pain mostly in the right lower quadrant. He had radiographic evidence consistent with significant appendicitis and the surgical service was consulted. Hospital Course Hospital Course: The patient underwent laparoscopic appendectomy. Please see operative report for detail. Intraoperative findings revealed necrotic/perforated appendicitis with severe inflammatory changes of the surrounding tissue to include small bowel and colon. Postoperatively he convalesced fairly well. He was maintained on Zosyn and remain afebrile with stable normal vital signs. He did have somewhat of a postoperative ileus with concomitant abdominal distention and nausea. A few episodes of emesis noted. The patient also did develop "loose stools" with subsequent negative diarrhea panel. Postoperative hypokalemia treated with combination of IV and p.o. potassium replacement. His white blood cell count normalized and his potassium significantly improved/normalized. The patient symptomatically improved and was deemed appropriate for discharge on postoperative day 5. Objective Vital signs: Temp Pulse Resp BP Pulse Ox 97.9 F 80 16 156/69 H 94 L 03/06/18 07:47 03/06/18 07:47 03/06/18 07:47 03/06/18 07:47 03/06/18 07:47 no acute distress - *Routine HEENT Exam Head: Present: normocephalic, atraumatic - *Routine Neck Exam Present: full ROM - Routine Chest/Breast/Axilla Exam Chest wall: Absent: tenderness - *Routine Respiratory Exam Absent: respiratory distress - *Routine Cardiovascular Exam Present: RRR - *Routine Abdominal Exam Present: soft, tenderness, distended. Absent: rebound, guarding Comments: mildly distended. mild RLQ TTP. - *Routine Extremities Exam Present: full ROM. Absent: cyanosis, clubbing - Routine Back/Spine/Pelvis Exam Back/Spine: Present: full ROM - *Routine Skin Exam Present: intact. Absent: cyanosis, erythema - *Routine Neurological Exam Present: alert - Routine Psychiatric Exam Present: normal affect DS: Diagnosis - Discharge Diagnosis (1) Perforated appendicitis Status: Acute Problem details: Stable status post laparoscopic appendectomy. (2) Hypokalemia Status: Resolved Problem details: Essentially resolved. (3) Hyponatremia Status: Resolved (4) GERD (gastroesophageal reflux disease) Status: Chronic Discharge Plan - Patient Discharge Instructions ACTIVITY: No heavy lifting DIET: advance to your usual diet Additional Instructions: slowly advance. Boost/Ensure TID Patient Instructions: DI for an Appendectomy, DI for Acute Abdomen, DI for Surgical Site Infection - Follow up Plan Follow up with: Darlyn Lowe APRN [Primary Care Provider] - Len Benson MD [Staff Physician] - 03/08/18 Disposition: Home, Self-Alf Medications: Home Medications Medication Instructions Recorded Confirmed Type omeprazole 20 mg capsule,delayed 20 mg PO DAILY cap 08/25/17 03/01/18 History release tamsulosin 0.4 mg capsule 0.4 mg PO HS cap 08/25/17 03/02/18 History Bisoprolol Fumarate [Bisoprolol 10 mg PO DAILY 03/01/18 03/01/18 History 10mg Tablet] Famotidine [Acid Sccm Administrator] 20 mg PO HS 03/01/18 03/02/18 History Losartan/Hydrochlorothiazide 1 tab PO DAILY 03/01/18 03/01/18 History [Hyzaar 100-12.5 Tablet] Prescriptions/Medication Reconciliation: Continue omeprazole 20 mg capsule,delayed release 20 mg PO DAILY cap tamsulosin 0.4 mg capsule 0.4 mg PO HS cap Losartan/Hydrochlorothiazide [Hyzaar 100-12.5 Tablet] 1 tab PO DAILY Famotidine [Acid Sccm Administrator] 20 mg PO HS Bisoprolol Fumarate [Bisoprolol 10mg Tablet] 10 mg PO DAILY
== END 2018-03-06 11:12 | disposition home or self-care (01) ==
LOC: ER 16:12 → SDC 19:19 → 2ND 20:28
PROVIDERS: ADMIT Surgery; ATTEND Surgery

== ENCOUNTER → 2018-06-02 12:49 | Outpatient (CLI) | payer MEDICAID, SELFPAY ==
--- NOTE | 2018-06-02 | CI_ITS ---
Cerebrovascular Exam Indications: 780.4 Dizziness and giddiness. IMPRESSIONS 1. The bilateral vertebral arteries are patent with normal antegrade flow. 2. Study suggests less than 20% stenosis involving the right internal carotid artery. 3. Study suggests less than 20% stenosis involving the left internal carotid artery. History: Risk factors: Hypertension. Carotid duplex study. Complete study and Doppler flow study including spectral analysis, color and lindsay scale imaging. Height: Height: 182.9cm. Height: 72in. Weight: Weight: 101.2kg. Weight: 222.5lb. Body mass index: BMI: 30.2kg/m^2. Body surface area: BSA: 2.29m^2. Location: Vascular laboratory. Patient status: Outpatient. Incidental findings: A thyroid nodule in the right lobe is noted incidentally. A thyroidnodule in the left lobe is noted incidentally. Tables: Arterial flow: + +--------+--------+ Location V sys V ed + +--------+--------+ Right CCA - proximal 84.9cm/s 21.2cm/s + +--------+--------+ Right CCA - distal 62.1cm/s 21.2cm/s + +--------+--------+ Right ECA 92.7cm/s 18.9cm/s + +--------+--------+ Right ICA - proximal 49.5cm/s 22.8cm/s + +--------+--------+ Right ICA - mid 69.1cm/s 27.5cm/s + +--------+--------+ Right ICA - distal 74.6cm/s 31.4cm/s + +--------+--------+ Right vertebral 51.9cm/s 22.8cm/s + +--------+--------+ Left CCA - proximal 82.5cm/s 22cm/s + +--------+--------+ Left CCA - distal 49.5cm/s 15.7cm/s + +--------+--------+ Left ECA 77cm/s 13.4cm/s + +--------+--------+ Left ICA - proximal 61.3cm/s 27.5cm/s + +--------+--------+ Left ICA - mid 82.5cm/s 40.1cm/s + +--------+--------+ Left ICA - distal 80.1cm/s 35.4cm/s + +--------+--------+ Left vertebral 20.1cm/s 3.1cm/s + +--------+--------+ Velocity ratios: + + + + + + Right, V sys Right, V ed Left, V sys Left, V ed + + + + + + Max ICA/dist CCA 1.2 1.48 1.67 2.55 + + + + + + (Report amended ) Electronically signed by: Agustin Christie [id number]
== END ==
PROVIDERS: PCP Nurse Practitioner Family; Visit Provider Nurse Practitioner Family
DX: R42 Dizziness and giddiness (principal)
CPT/HCPCS: 93880

== ENCOUNTER → 2018-06-14 12:11 | Outpatient (CLI) | payer MEDICAID, SELFPAY ==
--- NOTE | 2018-06-14 12:14 | XR_ITS ---
XR knee LT 4V HISTORY: Left knee pain ITS.REASON: 4 views weightbearing ORDERING PHYSICIAN: Tess Campos MD PATIENT AGE: 58 years COMPARISON: 07/14/2017 FINDINGS: There are moderate to severe osteoarthritic changes of the medial compartment and patellofemoral joint with loss of the joint space medially and decrease in the joint space at the patellofemoral joint with osteophyte formation at the distal femur proximal tibia and posterior patella. Small suprapatellar effusion noted. No acute fracture or dislocation. The osteoarthritic changes at the medial compartment appear to have progressed since the previous exam. IMPRESSION: 1. Moderate to severe osteoarthritic change of the medial compartment which has progressed since the previous exam. 2. Moderate osteoarthritic change of the patellofemoral joint with small suprapatellar effusion
== END ==
PROVIDERS: PCP Nurse Practitioner Family; Visit Provider Orthopaedic Surgery
DX: M25.562 Pain in left knee (principal)
CPT/HCPCS: 73564

== ENCOUNTER → 2018-09-25 08:41 | Outpatient (CLI) | payer MEDICAID, SELFPAY ==
--- NOTE | 2018-09-25 08:59 | XR_ITS ---
XR knee RT 3V HISTORY: ITS.REASON: RT KNEE PAIN ORDERING PHYSICIAN: Darlyn Lowe APRN PATIENT AGE: 58 years COMPARISON: None FINDINGS: No fracture or dislocation. No lytic or blastic change. Normal mineralization. There is mild narrowing of the medial compartment and patellofemoral joint with associated lateral, medial tibial spurs, medial femoral condyle spurring posterior patellar spurs. No other significant findings IMPRESSION: Osteoarthritis as described. No acute osseous process.
--- NOTE | 2018-09-25 08:59 | XR_ITS ---
XR knee LT 3V HISTORY: ITS.REASON: LT KNEE PAIN ORDERING PHYSICIAN: Darlyn Lowe APRN PATIENT AGE: 58 years COMPARISON: None FINDINGS: No fracture or dislocation. No lytic or blastic change. Normal mineralization. There is moderate narrowing of the medial compartment with condyle and medial tibial plateau spur. There is narrowing of the patellofemoral joint with posterior patellar spurs. No other significant findings IMPRESSION: Osteoarthritis.
== END ==
PROVIDERS: PCP Nurse Practitioner Family; Visit Provider Nurse Practitioner Family
DX: M25.561 Pain in right knee (principal); M25.562 Pain in left knee
CPT/HCPCS: 73562

== ENCOUNTER → 2019-05-14 07:39 | Outpatient (CLI) | payer OTHER, SELFPAY ==
--- NOTE | 2019-05-14 07:43 | XR_ITS ---
PROCEDURE: XR KNEE RT 4V CLINICAL INDICATION: Bilateral knee pain Knee pain COMPARISON: [id number] XR knee LT 3V from 07/14/2017 [id number] XR knee LT 4V from 06/14/2018 FINDINGS: No fracture or dislocation. No lytic or blastic change. There is normal mineralization. There are moderate to severe osteoarthritic changes of the medial compartment and patellofemoral joint with mild osteoarthritis of the lateral compartment. There is a small suprapatellar effusion suspected. Other findings:None. IMPRESSION: Moderate to severe osteoarthritic change Dictated by: Agustin Christie MD 05/14/2019 08:12 Electronically signed by Agustin Christie MD in [place] 05/14/2019 08:12
--- NOTE | 2019-05-14 07:43 | XR_ITS ---
PROCEDURE: XR KNEE LT 4V CLINICAL INDICATION: B/L knee pain COMPARISON: [id number] XR knee LT 3V from 07/14/2017 [id number] XR knee LT 4V from 06/14/2018 FINDINGS: No fracture or dislocation. No lytic or blastic change. There is normal mineralization. Moderate to severe osteoarthritic changes involve the medial compartment and patellofemoral joint. Spurring is present at the medial compartment and tibial spine region as well as the proximal tibia posteriorly and the posterior patella. The degenerative changes at the patellofemoral joint appears slightly worse. There is a small suprapatellar effusion suspected Other findings:None. IMPRESSION: Moderate to severe osteoarthritic change of the medial compartment and patellofemoral joint slightly progressed at the patellofemoral joint with small knee joint effusion Dictated by: Agustin Christie MD 05/14/2019 08:13 Electronically signed by Agustin Christie MD in [place] 05/14/2019 08:13
== END ==
PROVIDERS: PCP Nurse Practitioner Family; Visit Provider Orthopaedic Surgery
DX: M25.561 Pain in right knee (principal); M25.562 Pain in left knee
CPT/HCPCS: 73564

== ENCOUNTER → 2020-01-28 08:23 | Outpatient (CLI) | payer OTHER, SELFPAY ==
--- NOTE | 2020-01-28 | XR_ITS ---
PROCEDURE: XR KNEE LT 3V CLINICAL INDICATION: PAIN IN LT KNEE COMPARISON: CR [id number] XR knee LT 3V from 07/14/2017 CR [id number] XR knee LT 4V from 06/14/2018 CR XR KNEE LT 4V from 05/14/2019 CR XR KNEE RT 4V from 05/14/2019 FINDINGS: No fracture or dislocation. No lytic or blastic change. There is normal mineralization. There are moderate osteoarthritic changes of the medial compartment and patellofemoral joint. These findings are similar when compared to the previous exam. Mild osteoarthritis is present at the lateral compartment. Other findings:None. IMPRESSION: Moderate osteoarthritic changes which appear stable Dictated by: Agustin Christie MD 01/28/2020 12:00 Agustin Christie MD in [place] 01/28/2020 12:00
--- NOTE | 2020-01-28 | XR_ITS ---
PROCEDURE: XR HIP RT 2-3V W/PELVIS CLINICAL INDICATION: RT HIP PAIN COMPARISON: No exams were available for comparison FINDINGS: There are minimal osteoarthritic changes are present involving the right hip. No fracture or dislocation. No lytic or blastic change. IMPRESSION: Minimal osteoarthritis right hip Dictated by: Agustin Christie MD 01/28/2020 10:04 Agustin Christie MD in [place] 01/28/2020 10:04
--- NOTE | 2020-01-28 | XR_ITS ---
PROCEDURE: XR CERVICAL SPINE 5V CLINICAL INDICATION: CERVICALGIA, LT UPPER EXTREM NUMBNESS, RT UPPER EXTREM NUMB COMPARISON: CR [id number] XR cervical spine 5V from 11/09/2017 FINDINGS: There is normal alignment. No acute fracture or dislocation is evident. There is mild degenerative disc disease at C2-C3 and C3-C4 as well as C5-C6 and C6-C7. There is 2 mm anterolisthesis of C4 on C5. Foraminal narrowing is present on the left at C6-C7. Facet hypertrophic changes are present on the left at C3-C4. Other findings:None. IMPRESSION: Cervical spondylosis with left-sided foraminal narrowing at C6-C7 Dictated by: Agustin Christie MD 01/28/2020 09:59 Agustin Christie MD in [place] 01/28/2020 09:59
--- NOTE | 2020-01-28 | XR_ITS ---
PROCEDURE: XR KNEE RT 3V CLINICAL INDICATION: PAIN IN RT KNEE COMPARISON: CR [id number] XR knee LT 3V from 07/14/2017 CR [id number] XR knee LT 4V from 06/14/2018 CR XR KNEE LT 4V from 05/14/2019 CR XR KNEE RT 4V from 05/14/2019 FINDINGS: There are moderate osteoarthritic changes of the right knee greatest at the patellofemoral joint and medial compartment. There is decrease in the joint space with prominent osteophytes. There is a knee joint effusion in the suprapatellar region. No acute fracture or dislocation is evident. IMPRESSION: Moderate osteoarthritis of the right knee with knee joint effusion. No significant change Dictated by: Agustin Christie MD 01/28/2020 11:16 Agustin Christie MD in [place] 01/28/2020 11:16
--- NOTE | 2020-01-28 | XR_ITS ---
PROCEDURE: XR HIP LT 2-3V W/PELVIS CLINICAL INDICATION: PAIN IN LT KNEE Pain COMPARISON: No exams were available for comparison FINDINGS: Minimal osteoarthritic changes are present involving both hips. No fracture or dislocation. No lytic or blastic change. There are degenerative changes in the lumbar spine. IMPRESSION: Mild osteoarthritic change of the hips and degenerative changes of spine Dictated by: Agustin Christie MD 01/28/2020 10:05 Agustin Christie MD in [place] 01/28/2020 10:05
== END ==
PROVIDERS: PCP Nurse Practitioner Family; Visit Provider Nurse Practitioner Family
DX: M25.562 Pain in left knee (principal); M25.561 Pain in right knee; M25.552 Pain in left hip; M25.551 Pain in right hip; M54.2 Cervicalgia; R20.0 Anesthesia of skin
CPT/HCPCS: 72050; 73502; 73562

== ENCOUNTER → 2020-04-10 14:52 | Outpatient (CLI) | payer OTHER, SELFPAY ==
--- NOTE | 2020-04-10 14:59 | XR_ITS ---
PROCEDURE: XR LUMBAR SPINE MIN 4V CLINICAL INDICATION: LUMBAR BACK PAIN W/ RADICULOPATHY AFFECTING LT LOWER EXTRE COMPARISON: No exams were available for comparison FINDINGS: No fracture or dislocation. No lytic or blastic change. There is normal mineralization. There is mild lumbar scoliosis convex right. Multilevel degenerative disc disease is present. There is retrolisthesis of L3 on L4 of 9 mm with degenerative disc disease from L1-S1 most severe at L3-L4 and L4-L5. Facet arthritic changes are present with facet hypertrophy on the left at L4-L5 and L5-S1. Other findings:Postsurgical changes with prior laminectomy at L4 and L5. IMPRESSION: Lumbar spondylosis as described above with postsurgical change. Dictated by: Agustin Christie MD 04/10/2020 16:54 Agustin Christie MD in [place] 04/10/2020 16:54
== END ==
PROVIDERS: PCP Nurse Practitioner Family; Visit Provider Nurse Practitioner Family
DX: M54.16 Radiculopathy, lumbar region (principal); Z98.890 Other specified postprocedural states
CPT/HCPCS: 72110

== ENCOUNTER → 2020-04-16 13:32 | Outpatient (CLI) | payer OTHER, SELFPAY ==
--- NOTE | 2020-04-16 13:43 | XR_ITS ---
PROCEDURE: XR ORBIT BILATERAL MIN 4V CLINICAL INDICATION: R/O METAL IN ORBITS PRIOR TO MRI History of metal in COMPARISON: CT [id number] CT cervical spine wo con from 12/16/2017 CR XR CERVICAL SPINE 5V from 01/28/2020 TECHNIQUE: AP views are obtained of the orbits with the patient looking up and down. FINDINGS: No radio opaque foreign bodies evident. IMPRESSION: No radio opaque orbital foreign body identified. Dictated by: Agustin Christie MD 04/16/2020 13:56 Agustin Christie MD in [place] 04/16/2020 13:56
--- NOTE | 2020-04-16 13:44 | MR_ITS ---
PROCEDURE: MR LUMBAR SPINE WO CON CLINICAL INDICATION: LBP WITH LEFT HIP NUMBNESS/TINGLING/PAIN LUMBAR SPINE IN 2016. LT HIP AND LBP. NO TRAUMA. NUMBNESS AND TINGLING. PRIOR X-RAY 04-10-20 CT 12-16-17 COMPARISON: CT [id number] CT abdomen pelvis w con from 03/01/2018 CR XR LUMBAR SPINE MIN 4V from 04/10/2020 TECHNIQUE: Standard multiplanar multiecho sequences are performed without contrast. 3-D MIP and myelographic images are also rendered and reviewed FINDINGS: There is multilevel lumbar spondylosis. The spinal cord at the T12 level. There is straightening of the lumbar lordosis. L1-L2: Degenerative disc disease with mild bulging disc. Endplate osteophytes are present anteriorly. There is 2 mm retrolisthesis of L1 L2-L3: Degenerative disc disease with mild bulging disc. Endplate osteophytes are present anteriorly L3-L4: Degenerative disc disease with bulging disc. There is 5 mm retrolisthesis of L3. There are prominent anterior osteophytes. Facet and ligamentum hypertrophy is noted. Facet hypertrophic changes are slightly greater on the left. There is transverse narrowing of the canal at 10 mm. There is moderate to severe right foraminal narrowing and severe left-sided foraminal narrowing with bilateral lateral recess narrowing. There is impingement upon the exiting L3 nerve roots on both sides left greater than right. L4-5: Degenerative disc disease with bulging disc with facet and ligamentum hypertrophy with severe bilateral foraminal narrowing left greater than right with impingement upon the exiting L4 nerve roots on both sides. Postsurgical changes with prior laminectomy at L4-5 L5-S1: Degenerative disc disease with bulging disc with facet and ligamentum hypertrophy causing bilateral lateral recess narrowing and severe right foraminal narrowing and moderate to severe left-sided foraminal narrowing. There is impingement upon the exiting right L5 nerve root. No extruded herniated disc is evident. There is a left renal cyst measuring 3.6 cm. IMPRESSION: Abnormal MRI of the lumbar spine with multilevel lumbar spondylosis with degenerative disc disease, bulging disc, and facet and ligamentum hypertrophy causing lateral recess and severe foraminal narrowing with neural impingement. Please see above for detailed description at each level. Postsurgical changes at L4-5 No extruded herniated disc is evident. Transverse narrowing of the canal is noted at L3-L4 Dictated by: Agustin Christie MD 04/17/2020 09:44 Agustin Christie MD in [place] 04/17/2020 09:44
== END ==
PROVIDERS: PCP Nurse Practitioner Family; Visit Provider Nurse Practitioner Family
DX: M54.16 Radiculopathy, lumbar region (principal); Z98.890 Other specified postprocedural states; H05.53 Retained (old) foreign body following penetrating wound of bilateral orbits
CPT/HCPCS: 70200; 72148; 76376

== ENCOUNTER → 2020-04-28 08:10 | Outpatient (POV) | payer OTHER, SELFPAY ==
[2020-04-28 08:24] VITALS: BP 174/78; PULSE 77; RESP 18; TEMP 36.8; O2SAT 98; BMI 28.8
--- NOTE | 2020-04-28 08:51 | HMH.PMCON ---
Assessment and Plan (1) Sacroiliitis Status: Chronic Category: Medical Code(s): M46.1 - Sacroiliitis, not elsewhere classified (2) Greater trochanteric bursitis of left hip Status: Chronic Category: Medical Code(s): M70.62 - Trochanteric bursitis, left hip - Assessment and plan all Dx Assessment and Plan for all problems:: We will set the patient up for a left SI joint injection left greater trochanteric bursa injection. Patient is on anti-inflammatories. He is continuing a home stretching program. I will follow-up with him after this reassess his symptoms at that time he has been instructed to call the office if he has any issues prior to his next appointment. Dr. Garcia has reviewed this note and agrees with this plan of care. This note was dictated using voice recognition software and may contain errors or omissions HPI - Data of Consult Consult date: 04/28/20 Requesting Physician: Kimberly León APRN Primary Care Provider: Darlyn Lowe APRN - Consult Narrative Reason for consult: Left hip pain History of present illness: Mr. Magaña is a 60 year old male who presents today for consultation regards his left hip pain. Patient rates his pain a 5 out of 10. He has had it for over a year. Patient does have a lumbar MRI showing pathology however he has had epidural injections with no relief. Patient's pain is right over his SI joint and radiates into his leg does not past his knee. Patient completed physical therapy with minimal relief. Patient has tried over 3 months of conservative treatment including medication management. Patient and I discussed SI joint injections. He does have a positive Arlene's test SI joint compression test distraction test and Leonid test on the left side. He is also extremely tender over his left greater trochanteric bursa. CC: Kimberly León APRN [facility] History I have reviewed the patient's past medical history: Yes Medical History: Reports:: Arrhythmia, Gastroesophageal Reflux Disease(GERD), Hyperlipidemia, Hypertension Denies:: Cancer, Diabetes Mellitus Type 1, Diabetes Mellitus Type 2, MRSA, Seizures *Have you ever received a pneumonia vaccine?: Yes *Have you received a flu vaccine this season?: Yes Other Medical History: Reports: Arthritis Laterality Cases: Bilateral: Other Other Surgeries: Yes: Appendectomy, Colonoscopy, Hernia Repair, Other Amputation: No Fractures: No - *Social History Smoking Status: Former smoker Tobacco Type: cigarettes # Packs/Day (cigarettes): 2 #Yrs smoked (if former smoker): 30 Alcohol Intake: never Substance Use Type: denies use *Occupational Status:: other Housing: house Household Members: spouse *Travel in the last 8 weeks: None Family Hx:: Unable to obtain Review of Systems - Review of Systems ROS General: no recent weight change, no fever, no sleep disturbances Respiratory: no cough, no shortness of air, no recurring pulmonary infections Cardiovascular/Peripheral Vascular: No chest pain, No palpitations, no edema, no shortness of breath. Gastrointestinal: no new onset incontinence, normal bowel movements reported Genitourinary: no new onset incontinence Musculoskeletal: Left SI joint pain, left hip pain Psychiatric: normal mood/ affect Neurological: [denies new onset weakness in extremities], [denies new onset balance issues] Meds Home Medications Medication Instructions Recorded Confirmed Type omeprazole 20 mg capsule,delayed 20 mg PO DAILY cap 08/25/17 03/14/20 History release Famotidine [Acid Assistant In Nursing] 20 mg PO HS 03/01/18 03/14/20 History Losartan/Hydrochlorothiazide 1 tab PO DAILY 03/01/18 03/14/20 History [Hyzaar 100-12.5 Tablet] bisoproloL fumarate [Bisoprolol 10 mg PO DAILY 03/01/18 03/14/20 History 10mg Tablet] Potassium Chloride 20 meq PO BID #20 tablet.er 03/06/18 03/14/20 Rx Allergies Allergy/AdvReac Type Severity Reaction Status Date / Time No Known Allergies All
== END ==
PROVIDERS: PCP Nurse Practitioner Family; Visit Provider Clinical Nurse Specialist Family Health
DX: M46.1 Sacroiliitis, not elsewhere classified (principal); M70.62 Trochanteric bursitis, left hip
CPT/HCPCS: 99202; G0463

== ENCOUNTER 2020-05-02 09:53 | Day surgery (SDC) | payer OTHER, SELFPAY ==
[2020-05-02 09:57] VITALS: BP 166/80; PULSE 65; RESP 18; TEMP 36.4; O2SAT 98; BMI 28.8
[2020-05-02 11:17] VITALS: BP 142/94; PULSE 65; RESP 18; O2SAT 98
[2020-05-02 11:18] VITALS: BP 142/78; PULSE 66; RESP 18; O2SAT 98
--- NOTE | 2020-05-02 11:31 | P.PCN_ITS ---
- Procedure Date: 05/02/20 Time: 11:31 Anesthesiologist:: Srini Garcia MD Complications:: None Pre-procedure Diagnosis:: Sacroiliitis and trochanteric bursitis Post-procedure Diagnosis:: Same Indications for Procedure:: Patient is a pleasant 60-year-old white male who we are treating for left-sided hip pain. He is tender over the left SI joint. He is positive a recess on left side. As well as Leonid test on left side. Is positive SI joint compression test on left side. He has a positive distraction test on left side. We will do a left SI joint injection under fluoroscopy today to help with his pain symptoms. He is also failed all previous conservative therapy including physical therapy and oral medications. He also is tender over the left trochanteric bursa. We will do a left trochanteric bursa injection as well. Procedure Details:: Left SI joint injection under fluoroscopy Informed consent was obtained and the risks and benefits of the procedure was explained to the patient. Patient was taken to the procedure room. Patient was placed prone on the procedure table. The left hip was prepped using ChloraPrep. The skin and subcutaneous tissues were anesthetized using lidocaine. I placed a 22-gauge spinal needle into the inferior aspect of the left SI joint. Needle placement was confirmed with dye. After this we injected 5 mL bupivacaine 0.25% and Depo-Medrol 40 mg into the left SI joint. The patient tolerated the procedure well with no complication. Left trochanteric bursa injection under fluoroscopy informed consent was obtained and the risk and benefits of the procedure was explained to the patient. The patient was taken to procedure room and placed prone on the procedure table. The left hip was prepped using ChloraPrep. The skin and subcutaneous tissues were anesthetized using lidocaine. I placed a 22- gauge spinal needle under fluoroscopic guidance and advanced until it contacted the left greater trochanter. Needle placement was confirmed with dye. After this we injected 5 mL bupivacaine 0.25% and Depo-Medrol 40 mg. Patient tolerated the procedure well with no complications. Plan and Disposition:: We will follow-up with him in 2 weeks. Will reevaluate symptoms at that time.
[2020-05-02 11:33] VITALS: BP 160/82; PULSE 62; RESP 20; O2SAT 98
== END 2020-05-02 11:34 | disposition home or self-care (01) ==
LOC: SC.PAINP 09:54
PROVIDERS: PCP Nurse Practitioner Family; Visit Provider Anesthesiology
DX: M46.1 Sacroiliitis, not elsewhere classified (principal); M70.62 Trochanteric bursitis, left hip; K21.9 Gastro-esophageal reflux disease without esophagitis; I10 Essential (primary) hypertension; F41.9 Anxiety disorder, unspecified; F32.9 Major depressive disorder, single episode, unspecified; Z79.899 Other long term (current) drug therapy
CPT/HCPCS: 20610; 27096; 77002; G0260; J1030; Q9966

== ENCOUNTER → 2020-05-12 08:38 | Outpatient (POV) | payer OTHER, SELFPAY ==
[2020-05-12 08:50] VITALS: BP 174/68; PULSE 69; RESP 18; TEMP 36.8; O2SAT 98; BMI 28.8
--- NOTE | 2020-05-12 08:52 | P.CONS_ITS ---
[facility] Pain Management SOAP Note Subjective:: 60-year-old white male who presents today for follow-up after left SI joint left greater trochanteric bursa injection. Patient got 1 day relief. His pain is now back to 10 out of 10. Most of his pain is in his left hip he has failed hip injections, SI joint injections, epidurals. I do believe a orthopedic consultation is propria. We will send him for updated left hip x-ray. We will send him to Dr. Herr. On anti-inflammatories that he has failed physical therapy and injection therapy. ROS General: no recent weight change, no fever, no sleep disturbances Respiratory: no cough, no shortness of air, no recurring pulmonary infections Cardiovascular/Peripheral Vascular: No chest pain, No palpitations, no edema, no shortness of breath. Gastrointestinal: no new onset incontinence, normal bowel movements reported Genitourinary: no new onset incontinence Musculoskeletal: Left hip pain Psychiatric: normal mood/ affect Neurological: [denies new onset weakness in extremities], [denies new onset balance issues] Objective:: General: Alert and oriented x3, no acute distress, pleasant and cooperative, [on room air] Lungs: Resps E/U, Symmetrical chest expansion, Eyes: PERRL Musculoskeletal: Flexion and extension of lumbar spine somewhat guarded secon stefano to pain, deep tendon reflexes normal, strength in upper and lower extremities [5/5], [abnormal gait noted] Neurological: speech clear, director [employer] equal, no gross sensory deficits Assessment:: Left hip pain, left hip arthritis Plan:: We will send the patient to Dr. Herr to see if he is a candidate for an anterior approach left hip replacement. We will also send him for an updated left hip x-ray. I will follow-up with him after this reassess his symptoms at that time he has been instructed to call the office if he has any issues prior t o next appointment. Dr. Garcia has reviewed this note and agrees with this plan of care. This note was dictated using voice recognition software and may contain errors or omissions [facility] History I have reviewed the patient's past medical history: Yes Medical History: Reports:: Arrhythmia, Gastroesophageal Reflux Disease(GERD), Hyperlipidemia, Hypertension Denies:: Cancer, Diabetes Mellitus Type 1, Diabetes Mellitus Type 2, MRSA, Seizures *Have you ever received a pneumonia vaccine?: No *Have you received a flu vaccine this season?: No Other Medical History: Reports: Arthritis. Denies: Blood Transfusion Reaction Laterality Cases: Bilateral: Other Other Surgeries: Yes: Appendectomy, Colonoscopy, Hernia Repair, Other Amputation: No Fractures: No - *Social History Smoking Status: Former smoker Tobacco Type: cigarettes # Packs/Day (cigarettes): 2 #Yrs smoked (if former smoker): 30 Alcohol Intake: never Substance Use Type: denies use *Occupational Status:: other Housing: house Household Members: spouse *Travel in the last 8 weeks: None Family Hx:: Unable to obtain
--- NOTE | 2020-05-12 09:03 | XR_ITS ---
PROCEDURE: XR HIP LT 2-3V W/PELVIS CLINICAL INDICATION: LT HIP PAIN Chronic left hip pain COMPARISON: CR XR HIP LT 2-3V W/PELVIS from 01/28/2020 FINDINGS: There is only slight decrease in the hip joint space with minimal osteosclerosis of the acetabular roof suggesting minimal osteoarthritic change. Degenerative changes are present in the lumbar spine. No fracture or dislocation. No lytic or blastic change. IMPRESSION: Minimal osteoarthritic change of the left hip with degenerative changes also noted of the lumbar spine Dictated by: Agustin Christie MD 05/12/2020 11:19 Agustin Christie MD in [place] 05/12/2020 11:19
== END ==
PROVIDERS: PCP Nurse Practitioner Family; Visit Provider Clinical Nurse Specialist Family Health
DX: M16.12 Unilateral primary osteoarthritis, left hip (principal); M25.552 Pain in left hip
CPT/HCPCS: 73502; 99212; G0463

== ENCOUNTER → 2020-05-12 08:56 | Outpatient (CLI) | payer OTHER, SELFPAY | PROVIDERS: PCP Nurse Practitioner Family; Visit Provider Clinical Nurse Specialist Family Health | DX: M25.552 Pain in left hip (principal) ==

== ENCOUNTER → 2020-09-26 14:30 | Outpatient (CLI) | payer OTHER, SELFPAY ==
--- NOTE | 2020-09-26 14:33 | MR_ITS ---
PROCEDURE: MR CERVICAL SPINE WO CON CLINICAL INDICATION: CERVICAL PAIN Lt sided neck and arm pain. Symptoms x2wks. No surgery. Tingling in fingers of lt hand. Prior x-ray 01/28/20. COMPARISON: CR XR CERVICAL SPINE 5V from 01/28/2020 TECHNIQUE: Standard multiplanar multiecho sequences are performed without contrast. 3-D MIP and myelographic images are also rendered and reviewed FINDINGS: There is normal alignment. There is prominent right vertebral artery which appears to be solely supplying the basilar artery with left vertebral artery not identified with certainty. The craniocervical junction has an unremarkable appearance. C2-C3: There is a small right paracentral disc protrusion/disc osteophyte complex causing mild right lateral recess and foraminal narrowing. C3-C4: Degenerative disc disease with 3 mm anterolisthesis of C3. There is bulging disc at this level slightly eccentric toward the left. There is canal stenosis at 8 mm. Hypertrophy is present involving the lamina contributing to the canal stenosis. On the left at this level there is some increased T2 signal involving the left-sided facets possibly related to partial volume averaging from a small amount of fluid within the facet joint as well as some mild bone marrow edema of the facets on the left.. There is bilateral facet hypertrophic change with bilateral foraminal narrowing left greater than right. C4-C5: Severe left-sided foraminal narrowing from facet and uncovertebral hypertrophy. C5-C6: Degenerative disc disease with bulging disc slightly eccentric toward the right with canal stenosis at 9 mm. There is bilateral foraminal narrowing right greater than left. C6-C7: Degenerate disc disease with bulging disc and a small left paracentral and foraminal disc protrusion resulting in left lateral recess narrowing as well severe left-sided foraminal narrowing. Canal stenosis present at this level. C7-T1: Minimal bulging disc. IMPRESSION: 1. C2-C3: There is a small right paracentral disc protrusion/disc osteophyte complex causing mild right lateral recess and foraminal narrowing. 2. C3-C4: Degenerative disc disease with 3 mm anterolisthesis of C3. There is bulging disc at this level slightly eccentric toward the left. There is canal stenosis at 8 mm. Hypertrophy is present involving the lamina contributing to the canal stenosis. On the left at this level there is some increased T2 signal involving the left-sided facets possibly related to partial volume averaging from a small amount of fluid within the facet joint as well as some mild bone marrow edema of the facets on the left.. There is bilateral facet hypertrophic change with bilateral foraminal narrowing left greater than right. 3. C4-C5: Severe left-sided foraminal narrowing from facet and uncovertebral hypertrophy. 4. C5-C6: Degenerative disc disease with bulging disc slightly eccentric toward the right with canal stenosis at 9 mm. There is bilateral foraminal narrowing right greater than left. 5. C6-C7: Degenerate disc disease with bulging disc and a small left paracentral and foraminal disc protrusion resulting in left lateral recess narrowing as well severe left-sided foraminal narrowing. Canal stenosis present at this level Dictated by: Agustin Christie MD 09/29/2020 08:23 Agustin Christie MD in [place] 09/29/2020 08:23
== END ==
PROVIDERS: PCP Nurse Practitioner Family; Visit Provider Nurse Practitioner Family
DX: M54.2 Cervicalgia (principal); R20.0 Anesthesia of skin; R20.2 Paresthesia of skin
CPT/HCPCS: 72141; 76376

== ENCOUNTER 2020-10-21 09:00 | Outpatient (RCR) | payer OTHER, SELFPAY ==
--- NOTE | 2020-09-30 09:17 | HMH.PTOPEV ---
PT Outpatient Evaluation Rehab PT Outpatient Evaluation Start: 09/30/20 09:09 Freq: Status: Active Protocol: Document 09/30/20 09:09 MARCELLO (Rec: 09/30/20 09:16 MARCELLO [id number]) Electronically Signed By Cisco Reynoso, PT 09/30/20 09:09 Outpatient Therapy Subjective History Subjective History Pt reports insidious onset left sided neck pain beginning ~1 month ago. Pt reports pain has progressed into L UT mm, and down LUE to L hand w/N&T. Pt reports neck stiffness, and some referred pain into the right UT mm. Recent MRI of cervical spine has revealed DDD, disc protrusion @C6-7 to Left, stenosis, retrolisthesis . Chief Complaint Pain,Stiff Symptom Type Ache,Dull,Numbness,Tingling Symptoms Relieved By Rest/Positioning Symptoms Aggravated By Physical Activity,Lifting Prior Functional Limitations Reaching,Lifting,Housework Current Functional Limitations Reaching,Lifting,Housework, Sleeping Symptom Description Constant but Variable Level of pain today (0-10) 5 Pain scale - at its best (0-10) 4 Pain scale - at its worst (0-10) 7 Cervical Eval Palpation Cervical Muscles L Cervical Paraspinal,L CT Junction,R Upper Trapezius,L Upper Trapezius,L Thoracic Paraspinals Cervical/Thoracic Palpation Findings Tenderness,Trigger Point, Muscle Guarding Posture Head/C-Spine Posture Sitting Position Flexed Head/C-Spine Posture Standing Position Flexed Flexibility Deficits Upper Trapezius Muscle Length (L) Moderate Tightness Scalene Group Muscle Length (L) Moderate Tightness Pectoralis Major Muscle Length (R) Mild Tightness,(L) Mild Tightness Pectoralis Minor Muscle Length (R) Mild Tightness,(L) Mild Tightness Passive Joint Mobility Cervical PIVM Dec: R OA L OA R AA L AA R C2/3 L C2/3 R C3/4 L C3/4 R C4/5 L C4/5 R C5/6 L C5/6
== END 2020-10-21 09:05 | disposition home or self-care (01) ==
LOC: PT 09:00
PROVIDERS: PCP Nurse Practitioner Family; Visit Provider Nurse Practitioner Family
DX: M54.2 Cervicalgia (principal); R20.0 Anesthesia of skin; R20.2 Paresthesia of skin
CPT/HCPCS: 20560; 97010; 97012; 97014; 97110; 97163; G0283

== ENCOUNTER → 2021-10-06 09:47 | Outpatient (CLI) | payer OTHER, SELFPAY ==
--- NOTE | 2021-10-06 09:51 | XR_ITS ---
FINAL REPORT CLINICAL HISTORY: knee pain FINDINGS: RIGHT KNEE Four views of the right knee obtained. There is no acute fracture or dislocation. Severe medial compartment degenerative change is identified. There are moderate degenerative changes elsewhere. There is a moderate joint effusion. Mild soft tissue calcification is identified. IMPRESSION: Degenerative changes without acute process. Reviewed, Interpreted and Dictated by Meliton Riddle III, MD Transcribed by Jodi Mccurdy Authenticated and [facility]
--- NOTE | 2021-10-06 09:51 | XR_ITS ---
FINAL REPORT CLINICAL HISTORY: knee pain FINDINGS: LEFT KNEE Four views of the left knee obtained. There is no acute fracture or dislocation. There is severe medial compartment degenerative change. Moderate degenerative changes are seen elsewhere. There is a moderate joint effusion. Mild soft tissue calcifications are identified IMPRESSION: Degenerative changes without acute process. Reviewed, Interpreted and Dictated by Meliton Riddle III, MD Transcribed by Jodi Mccurdy Authenticated and [facility]
== END ==
PROVIDERS: PCP Nurse Practitioner Family; Visit Provider Orthopaedic Surgery
DX: M25.561 Pain in right knee (principal); M25.562 Pain in left knee
CPT/HCPCS: 73564

== ENCOUNTER → 2023-02-17 07:37 | Outpatient (CLI) | payer MEDICARE, OTHER, SELFPAY ==
--- OUTSIDE RECORDS SUMMARY | 2023-02-17 07:39 | XMS_ITS ---
Author Name Unknown Address [address] [place] [address] Phone Organization [facility] Address [address] [place] [address] Phone Care Team Providers Care Collator Name Role Phone PALMA SUNNIE Primary Care Provider [phone] Christiano Allen MD Unavailable [phone] Problems Includes: Active, inactive, and resolved Problems All Visits Onset Date Resolved Date Provider Condition S tatus Joint Pain in Both Knees 11/19/2022 Halima Rosen PA-C Active Plan of Treatment Future Appointments Date Time Location [facility] 03/15/2023 10:30AM Surgery Leonor White MD Instructions to patient Lose weight Last Documented On 3 10:42AM ; [facility] Lose weight Last Documented On 3 2:14PM ; [facility] Lose weight Last Documented On 3 2:14PM ; [facility] Lose weight
--- OUTSIDE RECORDS SUMMARY | 2023-02-17 07:39 | XMS_ITS ---
Care Plan - [facility], [facility] Created on: February 17, 2023 Sohail Magaña : 1960 Sex: Male Author Name Unknown Address [address] [place] [address] Phone Organization [facility] Address [address] [place] [address] Phone Care Team Providers Care Jig Box Operator Name Role Phone MEAGHAN SUN Primary Care Provider [phone] Christiano Allen MD Unavailable [phone]
--- OUTSIDE RECORDS SUMMARY | 2023-02-17 07:39 | XMS_ITS | Clinical Summary ---
Author Name Unknown Address [address] [place] [address] Phone Organization [facility] Address [address] [place] [address] Phone Care Team Providers Care Washer And Capper Machine Operator Name Role Phone MEAGHAN SUN Primary Care Provider [phone] Christiano Allen MD Unavailable [phone] Reason for Visit and Chief Complaint The Chief Complaint is: BILATERAL KNEE PAIN Problems Includes: Problems addressed during this encounter and other active Problems All Visits Onset Date Resolved Date Provider Condition S tatus Joint Pain in Both Knees 11/19/2022 Halima Rosen PA-C Active Plan of Treatment Treatment options were discussed with the patient at length including operative and nonoperative treatment options. As injections and other conservative treatments are becoming less and less effective he has elected to proceed with surgical intervention. He would like to proceed with left total knee arthroplasty. Risks of the procedure were discussed with the patient which include but are not limited to infection, persistent pain, blood clots, pulmonary embolus, need for repeat surgery, cardiac events, fat embolus, swelling, stroke and even . The patient has individual risk factors for surgery which include HTN and GERD. He had ample opportunity to have all of their questions answered by the medical care team and are encourage to contact us with any questions, changes or concerns that arise prior to procedure. He agrees to proceed as scheduled. Labs ordered preop - CBC, Chem 7, MRSA nasal swab, type and screen, UA PT/PTT. Discontinue Celebrex and start Mobic twice daily as needed for pain. - Last Documented On 12/20/2022 12:18PM ; [facility]
--- OUTSIDE RECORDS SUMMARY | 2023-02-17 07:40 | XMS_ITS | Clinical Summary ---
Author Name Unknown Address [address] [place] [address] Phone Organization [facility] Address [address] [place] [address] Phone Care Team Providers Care Transportation Maintenance Worker Name Role Phone MEAGHAN SUN Primary Care Provider [phone] Christiano Allen MD Unavailable [phone] Reason for Visit and Chief Complaint The Chief Complaint is: bilateral hand numbness Problems Includes: Problems addressed during this encounter and other active Problems Current Visit Onset Date Resolved Date Provider Kg frost Status Numbness of Both Hands 10/21/2022 Halima moeller PA-C Inactive Past Visits Onset Date Resolved Date Provider Condition Status Joint Pain in Both Knees 11/19/2022 Halima Rosen PA-C Active Plan of Treatment Treatment options were discussed with the patient after reviewing radiographs and physical exam findings with him and his . He is not interested in any type of surgical intervention at this time. He would like to start with conservative treatment. Left carpal tunnel injection (40 mg) Continue Tylenol and diclofenac as needed for pain. Return to clinic in 2 weeks with 2 views right shoulder if CT has improved. Procedure The risks, benefits and alternatives of a cortisone injection were discussed with the patient. Risk include infection, bleeding and transient hyperglycemia and atrophy at injection. No certain guarantees have been made, patients understand that responses can vary and multiple procedures may be necessary. They wish to proceed and verbal consent was obtained. The skin was p
--- OUTSIDE RECORDS SUMMARY | 2023-02-17 07:40 | XMS_ITS | Clinical Summary ---
Author Name Unknown Address [address] [place] [address] Phone Organization [facility] Address [address] [place] [address] Phone Care Team Providers Care Wood Heel Back Liner Name Role Phone MEAGHAN SUN Primary Care Provider [phone] Christiano Allen MD Unavailable [phone] Reason for Visit and Chief Complaint The Chief Complaint is: BILATERAL KNEE PAIN Problems Includes: Problems addressed during this encounter and other active Problems Current Visit Onset Date Resolved Date Provider Kg frost Status Joint Pain in Both Knees 11/19/2022 Halima Rosen PA-C Active Past Visits Onset Date Resolved Date Provider Condition Status Joint Pain, Localized in the Right Shoulder 11/05/2022 Halima Rosen PA-C Inac tive Plan of Treatment Treatment options were discussed with the patient and his including both operative and nonoperative treatments. His pain in his knees are affecting his day-to-day activities and he is interested in surgical intervention. Right knee injection (80 mg) Continue Celebrex as needed for pain. Return to clinic with Dr. White to discuss surgical options for left knee. Procedure The risks, benefits and alternatives of a cortisone injection were discussed with the patient. Risk include infection, bleeding and transient hyperglycemia and atrophy at injection. No certain guarantees have been made, patients understand that responses can vary and multiple procedures may be necessary. They wish to proceed and verbal consent was obtained. Alcohol w
--- OUTSIDE RECORDS SUMMARY | 2023-02-17 07:40 | XMS_ITS | Clinical Summary ---
Author Name Unknown Address [address] [place] [address] Phone Organization [facility] Address [address] [address] Phone Care Team Providers Care Career Development Coordinator Name Role Phone MEAGHAN SUN Primary Care Provider [phone] Christiano Allen MD Unavailable [phone] Reason for Visit and Chief Complaint The Chief Complaint is: right shoulder pain Problems Includes: Problems addressed during this encounter and other active Problems Current Visit Onset Date Resolved Date Provider Kg frost Status Joint Pain, Localized in the Right Shoulder 11/05/2022 Halmia Rosen PA-C Inac tive Past Visits Onset Date Resolved Date Provider Condition Status Joint Pain in Both Knees 11/19/2022 Halima Rosen PA-C Active Plan of Treatment Treatment options were discussed with the patient including injection, therapy and anti-inflammatories. At this time he would like to wait on injection options and try a new anti-inflammatory. Discontinue diclofenac and start Celebrex 200 mg daily. Rx for Voltaren gel to apply to right shoulder 4 times daily as needed for pain. Return to clinic in 2 to 3 weeks with 3 views bilateral knees - Last Documented On 11/26/2022 2:14PM ; [facility], [facility] Future Appointments Date Time Location [facility] 03/15/2023 10:30AM Surgery Leonor Frey
--- NOTE | 2023-02-17 07:42 | CA_ITS ---
APPROVED REPORT EXAM: Comprehensive 2D, Doppler, and color-flow Echocardiogram Silver Chaser: Tereza Little RDCS Ht: 6 ft 2 in Wt: 222lbs BSA: 2.27 BP: 160/90 mmHg Indications: SOA,HTN,PRE-OP KNEE 2D Dimensions LVOT 2.11 cm (M/F) 1.5-2.5 M-Mode Dimensions RVDd 2.19 cm (0.9-2.6) LA Diam 4.48 cm (1.9-4.0) LVDd 5.99 cm (3.5-5.7) Ao Diam 3.55 cm (2.0-3.7) LVDs 3.84 cm (3.5-5.7) IVSd 0.93 cm (0.6-1.1) PWd 0.90 cm (0.6-1.1) EF (Teich) 64.60% FS 35.90% EDV (Teich) 179.30 mL ESV (Teich) 63.50 mL LV Diastology E Decel Time 217.00 (160-240 msec) E/A Ratio 0.6 MED E' 3.70 (< 7 cm/sec) E'/MED E' Ratio 11.78 (>14) LAT E' 6.00 (<10 cm/sec) E/LAT E' Ratio 7.27 (>14) Mitral Valve MV E Max Nick. 44.00 (40-130 cm/s) MV A Velocity 72.00 (40-130 cm/s) E/A Ratio 0.60 MV Decel. Time 217.00 (160-240 ms) MV PHT 63.00 ms Left Ventricle The left ventricle is normal size. The left ventricular systolic function is normal. The left ventricular ejection fraction is within the normal range. There is increased left ventricular wall thickness. There is normal LV segmental wall motion. The left ventricular diastolic function is normal. LVEF is 55%. Right Ventricle The right ventricle is normal size. The right ventricular systolic function is normal. Atria Left atrium is mildly dilated. The right atrium size is normal. There is no Doppler evidence of interatrial shunt. Aortic Valve The aortic valve opens well. There is no aortic valvular stenosis. No aortic regurgitation is present. Mitral Valve The mitral valve is normal in structure. No evidence of mitral valve stenosis. Trace mitral regurgitation. Tricuspid Valve The tricuspid valve leaflets are thin and pliable. Trace tricuspid regurgitation. There is insufficient TR jet to estimate RVSP. Pulmonic Valve The pulmonary valve is normal in structure. Trace pulmonic regurgitation. Great Vessels The aortic root is normal in size. The ascending aorta is normal in size. IVC is normal in size and collapses >50% with inspiration. Pericardium There is no pericardial effusion. Other Information Study Quality: Fair Conclusion Normal biventricular systolic function. Mild LA dilation. No significant valvular stenosis or regurgitation. Electronically signed by : Val Bass MD 02/27/2023 21:20:45
== END ==
PROVIDERS: PCP Nurse Practitioner Family; Visit Provider Nurse Practitioner
DX: R06.02 Shortness of breath (principal)
CPT/HCPCS: 93306